=== PATIENT | male | born 1990 | race Caucasian/White ===

== ENCOUNTER → 2020-02-29 16:44 | Outpatient (CLI) | payer BC, SELFPAY | PROVIDERS: PCP Family Medicine; Visit Provider Family Medicine | DX: Z03.818 Encounter for observation for suspected exposure to other biological agents ruled out (principal); R05 Cough | CPT/HCPCS: U0003 ==

== ENCOUNTER 2020-10-20 14:27 | Emergency (ER) | payer BC, SELFPAY ==
--- NOTE | 2020-10-20 14:26 | ECG_ITS ---
APPROVED REPORT Exam: Resting ECG HR:91 bpm ECG Measurements Heart Rate 91 AXES AR 146 P 59 QRSd 82 QRS 42 QT 340 T 36 QTc 418 Conclusion Normal sinus rhythm Normal ECG Electronically signed by : Abel Ceja MD 10/22/2020 21:06:43
[2020-10-20 14:28] VITALS: BP 135/82; PULSE 84; RESP 22; TEMP 36.9; O2SAT 96; BMI 35.6
--- NOTE | 2020-10-20 14:32 | HMH.EDCP ---
ED Disposition Clinical Impression: Atypical chest pain Disposition: Home, Self-Care Condition on Discharge: Fair Instructions: DI for Atypical Chest Pain Additional Instructions: Return to the emergency department if you feel worse in any way. Follow-up with your primary care doctor in about 3 to 5 days even if you feel better. Referrals: Provider,Fran, [Primary Care Provider] - 7-14 days - Critical Care Critical Care Time: No Attestation: On , the high probability of a clinically significant, sudden or life threatening deterioration of the following system(s) required my full and direct attention, intervention and personal management. The time I documented below is in addition to time spent performing reported procedures but includes the following listed in this critical care notation. Medical Decision Making - Medical Records Medical records reviewed: Yes: I reviewed the patient's medical records. - Kamran Inquiry Pt receiving controlled substance: No Vital Signs: 10/20/20 14:28 Temperature 98.5 F Temperature Source Oral Pulse Rate [Left Radial] 84 Respiratory Rate 22 Blood Pressure [Right Arm] 135/82 Blood Pressure Mean [Right Arm] 99 Blood Pressure Source [Right Arm] Automatic Cuff Blood Pressure Position [Right Arm] Sitting 02 Sat by Pulse Oximetry 96 Oxygen Delivery Method Room Air - Lab Data Lab results reviewed: Yes: I reviewed the patient's lab results. Lab Results 10/20/20 14:30: WBC 9.8, RBC 5.35, Hgb 15.4, Hct 46.8, MCV 87.6, MCH 28.8, MCHC 32.8, RDW 12.9, Plt Count 323, MPV 7.5, Neut % (Auto) 66.4, Lymph % (Auto) 23.0, Mineral % (Auto) 4.4, Eos % (Auto) 5.5, Baso % (Auto) 0.7, Neut # (Auto) 6.5, Lymph # (Auto) 2.3, Mineral # (Auto) 0.4, Eos # (Auto) 0.5 H, Baso # (Auto) 0.1 10/20/20 14:30: Sodium 142, Potassium 4.1, Chloride 106, Carbon Dioxide 28, Anion Gap 12.1, BUN 11, Creatinine 0.80, Estimated Creat Clear 217, Estimated GFR 114, Est GFR ( Amer) 138, Glucose 102 H, Calcium 9.2, Total Bilirubin 1.0, AST 28, ALT 37, Alkaline Phosphatase 83, Troponin I < 0.01, Total Protein 8.0, Albumin 4.6, Globulin 3.4 H, Albumin/Globulin Ratio 1.4 Result diagrams: 10/20/20 14:30 10/20/20 14:30 Orders (Tests/Meds): ED MEDICATIONS Discontinued Medications Generic Name Dose Route Start Last Admin Trade Name Aundrea PRN Reason Stop Dose Admin Aspirin 324 mg 10/20/20 14:35 10/20/20 14:43 Aspirin 81mg Chewable Tablet PO 10/20/20 14:36 324 mg ONCE ONE Administration ORDERS Category Date Time Status Troponin I Q3H Lab 10/20/20 17:45 Ordered Troponin I Q3H Lab 10/20/20 20:45 Ordered - Radiology Data #1 Image(s): Chest Image Reviewed: Yes I reviewed the patient's radiology results, Yes I have reviewed radiologist's interpretation Preliminary Findings: Normal/NAD - ECG Data Tracing #1 I reviewed this ECG and interpreted as documented below: The ECG was performed at 1426. It shows a normal sinus rhythm with a heart rate of 91 bpm. There is no evidence of ischemia. The axes are normal. There is no dysrhythmia. Normal Sinus Rhythm: Yes - LINDA Score for Non-Stemi Age of Patient: <30 years old Heart Rate: 70-89 bpm Systolic Blood Pressure: 120-139 mmhg Serum Creatinine: 0.80-1.19 mg/dl CHF Killip Class: I-No CHF Other Risk Factors: None Non-Stemi Risk Score: 50 Medical Decision Narrative: The patient presented to the emergency department complaining of intermittent chest pain that lasts about 10 seconds at a time since yesterday. The patient's work-up in the emergency department did not reveal any evidence of life-threatening or dangerous causes for the patient's chest pain. His troponin is undetectable. His vital signs are unremarkable. Chest x-ray is also normal. I feel that the patient can be discharged in stable condition with instructions to follow-up with a primary care doctor. Chest Pain HPI - General Chief Complaint: Chest Pain
--- NOTE | 2020-10-20 14:35 | XR_ITS ---
PROCEDURE INFORMATION: Exam: XR Chest Exam date and time: 10/20/2020 2:35 PM Age: 29 years old Clinical indication: Sternal or substernal pain; Patient HX: Chest pain for 2 days. ; Additional info: , Cp TECHNIQUE: Imaging protocol: XR of the chest. Views: 1 view. COMPARISON: No relevant prior studies available. FINDINGS: Lungs: Unremarkable. No consolidation. Pleural spaces: Unremarkable. No pleural effusion. No pneumothorax. Heart/Mediastinum: Unremarkable. No cardiomegaly. Bones/joints: Unremarkable. IMPRESSION: No acute findings.
[2020-10-20 14:46] LABS: Chloride 106 mmol/L (98-107)
[2020-10-20 14:47] LABS: Potassium 4.1 mmoL/L (3.5-5.1); Sodium 142 mmol/L (136-145)
[2020-10-20 14:48] LABS: Basophils # 0.1 K/mm3 (0-0.2); Basophils % 0.7 % (0.1-2.0); Eosinophils # 0.5 K/mm3 (0.0-0.4); Eosinophils % 5.5 % (0.1-12.0); Hematocrit 46.8 % (42.0-52.0); Hemoglobin 15.4 g/dL (14.1-18.0); Lymphocytes # 2.3 K/mm3 (0.7-4.5); Mean Corpuscular HGB Conc 32.8 g/dL (31.8-35.4); Mean Corpuscular Hemoglobin 28.8 pg (27.0-31.2); Mean Corpuscular Volume 87.6 fl (80-94); Mean Platelet Volume 7.5 fl (7.4-10.4); Monocytes # 0.4 K/mm3 (0.1-1.0); Monocytes % 4.4 % (1.7-9.3); Neutrophils # 6.5 K/mm3 (1.8-7.8); Neutrophils % 66.4 % (37.0-80.0); Platelet Count 323 K/mm3 (142-424); Red Blood Count 5.35 M/mm3 (4.60-6.20); Red Cell Distribution Width 12.9 % (11.5-17.5); White Blood Count 9.8 K/mm3 (4.8-10.8)
[2020-10-20 14:49] LABS: Alanine Aminotransferase 37 U/L (12-78); Albumin Level 4.6 g/dl (3.5-5.0); Alkaline Phosphatase 83 U/L (38-126); Aspartate Amino Transferase 28 U/L (17-59); Blood Urea Nitrogen 11 mg/dl (9-20); Creatinine Clearance Estimated 217 mL/min (50-200); Estimated Glomerular Filt Rate 114 ml/min (>60); GFR (African American) 138 ML/MIN (>60)
[2020-10-20 14:50] LABS: Albumin/Globulin Ratio 1.4 (1.1-1.8); Anion Gap 12.1 mEq/L (5-15); Calcium 9.2 mg/dl (8.4-10.2); Carbon Dioxide 28 mmol/L (22.0-30.0); Globulin 3.4 g/dL (1.3-3.2); Glucose 102 mg/dl (74-100)
[2020-10-20 15:03] LABS: Troponin I < 0.01 ng/ml (0.00-0.034)
[2020-10-20 15:25] VITALS: BP 133/69; PULSE 78; RESP 16; TEMP 36.6; O2SAT 98
== END 2020-10-20 15:26 | disposition home or self-care (01) ==
PROVIDERS: Emergency Provider Emergency Medicine
DX: R07.89 Other chest pain (principal)
CPT/HCPCS: 71045; 80053; 84484; 85025; 93005; 99282

== ENCOUNTER 2020-12-03 07:57 | Emergency (ER) | payer BC, SELFPAY ==
[2020-12-03 07:57] VITALS: BP 156/94; PULSE 76; RESP 20; TEMP 36.9; O2SAT 98; BMI 35.9
--- NOTE | 2020-12-03 08:20 | PC.NURSE ---
PT DOES NOT WANT ANY PAIN MEDS AT THIS TIME
--- NOTE | 2020-12-03 08:25 | CT_ITS ---
PROCEDURE: CT ABDOMEN PELVIS WO CON CLINICAL INDICATION: lt flank pain, blood in urine COMPARISON: No exams were available for comparison TECHNIQUE: Axial images obtained with sagittal and coronal reformats. All CT scans at the facility use one or more dose reduction, viz: automated exposure control, ma/kV adjustment per patient size (including targeted exams where dose is matched to indication, i.e. head), or iterative reconstruction technique. FINDINGS: LOWER THORAX: No acute finding ABDOMEN & PELVIS: The liver, spleen, adrenal glands, and pancreas have an unremarkable appearance. There is a 5 x 3 mm stone in the proximal left ureter at the ureteropelvic junction causing mild left-sided hydronephrosis. There is scattered small mesenteric lymph nodes. No intestinal obstruction or free air is evident. No evidence of appendicitis. Scattered small nodes are present in the inguinal regions. No acute bony findings. IMPRESSION: 5 x 3 mm stone in the proximal left ureter at the ureteropelvic junction with mild left-sided hydronephrosis Dictated by: Martinez Sauceda MD 12/03/2020 08:59 Martinez Sauceda MD in [place] 12/03/2020 08:59
[2020-12-03 08:30] LABS: Microscopic, Urine URINE MICROSCOPIC (MICROSCOPIC)
[2020-12-03 08:36] LABS: Appearance,Urine CLEAR (Clear); Bilirubin,Urine Negative (Negative); Blood, Urine 3+ (Negative); Color,Urine YELLOW (Yellow); Glucose,Urine (UA) Negative (Negative); Ketones,Urine Negative (Negative); Leukocyte Esterase,Urine TRACE (Negative); Nitrate,Urine Negative (Negative); Protein,Urine TRACE (Negative); Specific Gravity, Urine 1.025 (1.005-1.030); Urobilinogen,Urine 0.2 EU/dl (0.2)
[2020-12-03 08:37] LABS: Basophils # 0.1 K/mm3 (0-0.2); Basophils % 0.8 % (0.1-2.0); Eosinophils # 0.7 K/mm3 (0.0-0.4); Hematocrit 45.9 % (42.0-52.0); Hemoglobin 14.8 g/dL (14.1-18.0); Lymphocytes % 27.1 % (10-50); Mean Corpuscular HGB Conc 32.2 g/dL (31.8-35.4); Mean Corpuscular Hemoglobin 29.7 pg (27.0-31.2); Mean Corpuscular Volume 92.3 fl (80-94); Mean Platelet Volume 8.4 fl (7.4-10.4); Monocytes # 0.5 K/mm3 (0.1-1.0); Monocytes % 4.3 % (1.7-9.3); Neutrophils # 6.9 K/mm3 (1.8-7.8); Neutrophils % 61.7 % (37.0-80.0); Platelet Count 338 K/mm3 (142-424); Red Blood Count 4.98 M/mm3 (4.60-6.20); White Blood Count 11.1 K/mm3 (4.8-10.8)
[2020-12-03 08:38] LABS: Alanine Aminotransferase 53 U/L (12-78); Albumin Level 4.4 g/dl (3.5-5.0); Albumin/Globulin Ratio 1.2 (1.1-1.8); Alkaline Phosphatase 86 U/L (38-126); Aspartate Amino Transferase 31 U/L (17-59); Bilirubin,Total 0.5 mg/dl (0.2-1.3); Blood Urea Nitrogen 9 mg/dl (9-20); Calcium 9.3 mg/dl (8.4-10.2); Carbon Dioxide 31 mmol/L (22.0-30.0); Chloride 102 mmol/L (98-107); Creatinine Clearance Estimated 217 mL/min (50-200); Estimated Glomerular Filt Rate 114 ml/min (>60); GFR (African American) 137 ML/MIN (>60); Globulin 3.6 g/dL (1.3-3.2); Glucose 115 mg/dl (74-100); Sodium 143 mmol/L (136-145)
[2020-12-03 08:43] LABS: RBC,Urine 20-50 #/hpf (0-3); Squamous Epithelial Cell,Urine Occasional #/hpf (0-5)
--- NOTE | 2020-12-03 08:57 | HMH.EDGENADL ---
ED Disposition Clinical Impression: Ureteral stone Disposition: Home, Self-Care Condition on Discharge: Good Additional Instructions: Medications as directed. Follow-up with urology. Prescriptions: Ketorolac Tromethamine [Toradol 10mg tablet] 10 mg PO Q6HP PRN #16 tab MDD 40mg/day PRN Reason: Mild Pain Transmission Status: Pending to [facility] Tamsulosin HCl [Flomax 0.4mg capsule] 0.4 mg PO HS #15 cap Transmission Status: Pending to [facility] Hydrocodone/Acetaminophen [Hydrocodone-Acetamin 5-325 mg] 1 tab PO TID PRN #8 tab PRN Reason: Moderate Pain Transmission Status: Sent to [facility] Ondansetron [Zofran 4mg ODT] 4 mg PO TIDP PRN #10 tab PRN Reason: Nausea Transmission Status: Pending to [facility] Referrals: Octavio Rico MD [Primary Care Provider] - Prem Cazares MD [Staff Physician] - (call today) Time of Disposition: 09:00 - Critical Care Critical Care Time: No Attestation: On 12/03/20, the high probability of a clinically significant, sudden or life threatening deterioration of the following system(s) required my full and direct attention, intervention and personal management. The time I documented below is in addition to time spent performing reported procedures but includes the following listed in this critical care notation. Medical Decision Making - Medical Records Medical records reviewed: Yes: I reviewed the patient's medical records. - Kamran Inquiry Pt receiving controlled substance: Yes Kamran was queried for this patient: No Reason not queried -: Emergent pt cond-no time Risks and benefits of using a controlled substance: were discussed with pt by me Vital Signs: 12/03/20 07:57 Temperature 98.4 F Temperature Source Oral Pulse Rate [Right Radial] 76 Respiratory Rate 20 Blood Pressure [Right Arm] 156/94 H Blood Pressure Mean [Right Arm] 114 Blood Pressure Source [Right Arm] Automatic Cuff Blood Pressure Position [Right Arm] Sitting 02 Sat by Pulse Oximetry 98 Oxygen Delivery Method Room Air - Lab Data Lab results reviewed: Yes: I reviewed the patient's lab results. Lab Results 12/03/20 08:05: Urine Color Yellow, Urine Appearance Clear, Urine pH 6.0, Ur Specific Melvin 1.025, Urine Protein Trace, Urine Glucose (UA) Negative, Urine Ketones Negative, Urine Blood 3+, Urine Nitrate Negative, Urine Bilirubin Negative, Urine Urobilinogen 0.2, Ur Leukocyte Esterase Trace, Urine RBC 20-50, Urine WBC 3-5, Ur Squamous Epith Cells Occasional, Urine Bacteria None 12/03/20 08:10: WBC 11.1 H, RBC 4.98, Hgb 14.8, Hct 45.9, MCV 92.3, MCH 29.7, MCHC 32.2, RDW 13.0, Plt Count 338, MPV 8.4, Neut % (Auto) 61.7, Lymph % (Auto) 27.1, Brule % (Auto) 4.3, Eos % (Auto) 6.0, Baso % (Auto) 0.8, Neut # (Auto) 6.9, Lymph # (Auto) 3.0, Brule # (Auto) 0.5, Eos # (Auto) 0.7 H, Baso # (Auto) 0.1 12/03/20 08:10: Sodium 143, Potassium 4.0, Chloride 102, Carbon Dioxide 31 H, Anion Gap 14.0, BUN 9, Creatinine 0.80, Estimated Creat Clear 217, Estimated GFR 114, Est GFR ( Amer) 137, Glucose 115 H, Calcium 9.3, Total Bilirubin 0.5, AST 31, ALT 53, Alkaline Phosphatase 86, Total Protein 8.0, Albumin 4.4, Globulin 3.6 H, Albumin/Globulin Ratio 1.2 Result diagrams: 12/03/20 08:10 12/03/20 08:10 Orders (Tests/Meds): ORDERS Category Date Time Status CT abdomen pelvis wo con Stat Cat Scan 12/03/20 08:25 Taken - CT Data CT Scan: Abdomen, Pelvis Time Received: 08:[address] Reviewed: Yes: I have reviewed the patient's CT results Preliminary Findings: Abnormal Findings Narrative: Left proximal ureteral stone Medical Decision Narrative: 30yo M presents the emergency department left leg pain. Patient's HPI and physical exam is concerning for kidney stone. Patient has undergone laboratory studies and had his CT completed. Laboratory studies are unremarkable except for some blood in the patient's urine. Patient has a proximal ureter left k
[2020-12-03 09:38] VITALS: BP 134/89; PULSE 79; RESP 18; TEMP 36.8; O2SAT 98
== END 2020-12-03 09:39 | disposition home or self-care (01) ==
PROVIDERS: Emergency Provider Family Medicine; PCP Family Medicine
DX: N20.1 Calculus of ureter (principal)
CPT/HCPCS: 74176; 80053; 81001; 85025; 99283

== ENCOUNTER → 2020-12-11 15:10 | Outpatient (CLI) | payer BC, SELFPAY ==
--- NOTE | 2020-12-11 15:16 | XR_ITS ---
PROCEDURE: XR KUB CLINICAL INDICATION: kidney stone COMPARISON: CT CT ABDOMEN PELVIS WO CON from 12/03/2020 FINDINGS: Nonspecific bowel gas pattern. No acute bony anomalies. A faint calcific density is present overlying the left pelvic region measuring approximately 3 mm and could represent a stone at the ureterovesical junction or within the bladder or could also be due to phleboliths. However, no phleboliths are present in this region on the CT scan. IMPRESSION: Possible 3 mm left ureterovesical stone or stone within the urinary bladder Dictated by: Martinez Sauceda MD 12/11/2020 17:19 Martinez Sauceda MD in [place] 12/11/2020 17:19
== END ==
PROVIDERS: PCP Family Medicine; Visit Provider Urology
DX: N20.0 Calculus of kidney (principal)
CPT/HCPCS: 74018

== ENCOUNTER 2022-02-25 22:17 | Emergency (ER) | payer BC, SELFPAY ==
[2022-02-25 22:19] VITALS: BP 132/69; PULSE 94; RESP 16; TEMP 36.7; O2SAT 96; BMI 35.4
--- NOTE | 2022-02-25 22:41 | HMH.EDEAR ---
Discharge Plan Disposition Patient Disposition: Home, Self-Care Prescriptions Prescriptions: New cefdinir [cefdinir] 300 mg capsule 300 mg PO BID Qty: 14 0RF No Action cephalexin 500 mg capsule 500 mg PO TID hydrocodone-acetaminophen 1 EACH tablet 1 tab PO TID PRN (Reason: Moderate Pain) Qty: 8 0RF ketorolac 10 MG tablet 10 mg PO Q6HP MDD 40mg/day PRN (Reason: Mild Pain) Qty: 16 0RF Rx Instructions: Therapy initiated with IV/IM dose tamsulosin 0.4 MG capsule 0.4 mg PO HS Qty: 15 0RF ondansetron 4 MG tablet,disintegrating 4 mg PO TIDP PRN (Reason: Nausea) Qty: 10 0RF Referrals Follow up/Referrals: Octavio Rico MD [Primary Care Provider] - See instructions Clinical Impressions Clinical Impression: Otitis media Instructions Patient Instructions: DI for Ear Pain-Child Discharge ED Provider: Gaetano Serrano Ear HPI General Chief complaint: Ear Stated complaint: R ear pain leaking Time Seen by Provider: 02/25/22 22:41 Mode of Arrival: Ambulatory Source of Information: Patient and Medical Record Limitations: No Limitations Description of Symptoms (Recalled from ER Triage Doc. by RN): pt states woke up arounf 7 tonight with rt ear pain. pt c/o throbbing, fullness and liquid draining out of ear. History of Present Illness HPI Narrative: progressive rt ear pain with drainage w/o trauma started tonight Complaint: ear pain and ear discharge Location: right ear Duration: intermittent Severity: moderate Discharge from ear: yes - clear Treatment prior to arrival: none Related Data Home Medications Medication Instructions Recorded Confirmed cephalexin 500 mg capsule 500 mg PO TID 06/13/17 12/23/20 Previous Rx's Medication Instructions Recorded hydrocodone 5 mg-acetaminophen 325 1 tab PO TID PRN Moderate Pain #8 12/03/20 mg tablet tabs ketorolac 10 mg tablet 10 mg PO Q6HP PRN Mild Pain #16 12/03/20 tabs ondansetron 4 mg disintegrating 4 mg PO TIDP PRN Nausea #10 tabs 12/03/20 tablet tamsulosin 0.4 mg capsule 0.4 mg PO HS #15 caps 12/03/20 cefdinir 300 mg capsule 300 mg PO BID #14 caps 02/25/22 Allergies Allergy/AdvReac Type Severity Reaction Status Date / Time No Known Allergies Allergy Verified 12/23/20 15:13 PFSH [facility] Disclaimer: The information contained in this section may have been updated after the patient was seen, as this information can be updated by other users. Social History Smoking Status: Never smoker alcohol intake: never substance use type: denies use current occupational status: employed Travel in the last 8 weeks: None household members: spouse and children housing: house ROS Obtained: Yes All systems reviewed & no additional complaints except as documented Physical Exam General General appearance: alert Head Head exam: normocephalic Eye Eye exam: Present PERRL and EOMI ENT ENT exam: Present mucous membranes moist Expanded ENT Exam TM/Canal exam: Right TM: erythema Neck Neck exam: Present trachea midline Respiratory Respiratory exam: Absent respiratory distress Cardiovascular Cardiovascular exam: Present regular rate Abdominal Exam Abdominal exam: Present soft Extremities Exam Extremities exam: Present full ROM Neurological Exam Neurological exam: Present alert, oriented X3 and CN II-XII intact Psychiatric Psychiatric exam: Present normal affect Skin Skin exam: Absent rash Medical Decision Making Medical Records Medical records reviewed: Yes I reviewed the patient's medical records. Kamran Inquiry Pt receiving controlled substance: No Vital Signs: 02/25/22 22:19 Temperature 98.1 F Temperature Source Oral Pulse Rate [Right] 94 H Respiratory Rate 16 Blood Pressure [Right Arm] 132/69 Blood Pressure Mean [Right Arm] 90 02 Sat by Pulse Oximetry 96 Lab Data Lab results reviewed: Yes I reviewed the patient's lab results. Medical Decision Narrative: pt has rt otitis med
[2022-02-25 23:13] VITALS: BP 129/87; PULSE 90; RESP 16; TEMP 36.7; O2SAT 96
== END 2022-02-25 23:15 | disposition home or self-care (01) ==
PROVIDERS: Emergency Provider Emergency Medicine; PCP Family Medicine
DX: H66.91 Otitis media, unspecified, right ear (principal); R11.0 Nausea; Z79.899 Other long term (current) drug therapy
CPT/HCPCS: 99283

== ENCOUNTER → 2022-11-18 10:58 | Outpatient (CLI) | payer BC, SELFPAY ==
--- NOTE | 2022-11-18 | CA_ITS ---
APPROVED REPORT Exam: Exercise Treadmill Technologist: Pretty Vega Ht: 5 ft 9 in Wt: 245 lbs BSA: 2.25 m2 HR: 76 bpm BP: 128/75 mmHg Rhythm: NSR Medical History Medications: ANxiety,,,,, Stress Test Details Test: Rafat HR Resting HR: 85 bpm Max Heart Rate (APMHR): 189 bpm Max HR Achieved: 185 bpm Target HR (85% APMHR): 161 bpm % of APMHR: 98 Recovery HR: 105 bpm HR response to stress: Normal HR response to stress BP Resting BP: 128.0/75.0 mmHg Max BP: 188.0/74.0 mmHg Recovery BP: 131.0/78.0 mmHg BP response to stress: Normal blood pressure response to stress. ECG Resting ECG: Normal sinus rhythm, early repolarization changes. Stress ECG: No significant ST changes Arrhythmia: None Recovery ECG: No significant ST changes Recovery Arrhythmia: None Clinical Exercise duration: 10:24 min Highest Stage Achieved: Exercise capacity: 12.8 METs Overall Exercise Capacity for Age: Average Stress ECG Conclusion The patient was able to exercise for a total of 10 minutes, 24 seconds. He achieved a total of 12.8 METS. He has an average exercise capacity compared to age and sex matched peers. Test stopped due to shortness of air. He has normal HR and BP response to exercise. Symptoms: No chest pain. Arrhythmias/Ectopy: None ST-T Changes: Normal ST response to exercise. Conclusion: Normal GXT. GXT only (no imaging). Test Summary REST . . . . . . . Standing REST . . . . . . . Sitting REST 03:14 0.0 0.0 85 . 128/ 75 . . Stage 1 01:00 10.0 1.7 104 . . . . Stage 1 02:00 10.0 1.7 111 . . . . Stage 1 03:00 10.0 1.7 110 . 146/ 78 . . Stage 2 01:00 12.0 2.5 118 . . . . Stage 2 02:00 12.0 2.5 125 . . . . Stage 2 03:00 12.0 2.5 135 . 166/ 78 . . Stage 3 01:00 14.0 3.4 145 . . . . Stage 3 02:00 14.0 3.4 155 . . . . Stage 3 03:00 14.0 3.4 163 . 188/ 74 . . Stage 4 01:00 16.0 4.2 181 . . . . Stage 4 01:24 16.0 4.2 184 . . . Stop exercise at 10:24 RECOVERY 01:00 0.0 0.0 164 . . . . RECOVERY 02:00 0.0 0.0 129 . 157/ 76 . . RECOVERY 03:00 0.0 0.0 115 . 157/ 76 . . RECOVERY 04:00 0.0 0.0 106 . 158/ 81 . . RECOVERY 05:00 0.0 0.0 107 . 131/ 78 . . RECOVERY 05:20 0.0 0.0 103 . 131/ 78 . . Electronically signed by : Camille Matthew MD 12/13/2022 00:01:54
== END ==
LOC: RAD 10:59
PROVIDERS: PCP Family Medicine; Visit Provider Family Medicine
DX: R07.89 Other chest pain (principal)
CPT/HCPCS: 93017

== ENCOUNTER 2023-04-15 14:01 | Emergency (ER) | payer BC, SELFPAY ==
--- NOTE | 2023-04-15 14:58 | EXP.UTC ---
Discharge Plan Disposition Patient Disposition: Home, Self-Care Condition: Good Prescriptions Prescriptions: New methylprednisolone 4 mg Tablets,Dose Pack 4 mg PO DIRECTED 6 Days Qty: 21 0RF Rx Instructions: Take 1 pack as directed for 6 days No Action hydrocodone-acetaminophen 1 EACH tablet 1 tab PO TID PRN (Reason: Moderate Pain) Qty: 8 0RF ketorolac 10 MG tablet 10 mg PO Q6HP MDD 40mg/day PRN (Reason: Mild Pain) Qty: 16 0RF Rx Instructions: Therapy initiated with IV/IM dose tamsulosin 0.4 MG capsule 0.4 mg PO HS Qty: 15 0RF ondansetron 4 MG tablet,disintegrating 4 mg PO TIDP PRN (Reason: Nausea) Qty: 10 0RF Referrals Follow up/Referrals: Octavio Rico MD [Primary Care Provider] - See instructions Activity Restrictions/Add. Instructions Additional Instructions/Restrictions: Go home and rest. It would be best if you rested tomorrow too. No heavy lifting. No twisting for the next few days. Take the oral medications as directed. Follow up with your regular doctor. GO TO THE ER FOR ANY WORSENING SYMPTOMS OR CONCERN, ESPECIALLY BOWEL OR BLADDER ISSUES, SADDLE AREA NUMBNESS, FEVER, ETC Clinical Impressions Clinical Impression: Pain in right leg, Right sided sciatica Stand Alone Forms Stand Alone Forms: Work/School Release Instructions Patient Instructions: DI for Sciatica, DI for Leg Pain, Methylprednisolone Discharge ED Provider: Ace Reddy [facility] General Stated complaint: pain in R buttox area Time Seen by Provider: 04/15/23 14:58 History of Present Illness Provider Complaint: He states that for the past 2 days he has had pain in the area of the top of his right buttock that radiates down his right leg. He denies any injury or fall. He denies any bowel or bladder symptoms. He denies any saddle area numbness. Related Data Previous Rx's Medication Instructions Recorded hydrocodone 5 mg-acetaminophen 325 1 tab PO TID PRN Moderate Pain #8 12/03/ mg tablet tabs ketorolac 10 mg tablet 10 mg PO Q6HP PRN Mild Pain #16 12/03/20 tabs ondansetron 4 mg disintegrating 4 mg PO TIDP PRN Nausea #10 tabs 12/03/20 tablet tamsulosin 0.4 mg capsule 0.4 mg PO HS #15 caps 12/03/20 methylprednisolone 4 mg tablets in 4 mg PO DIRECTED 6 days #21 tabs 04/15/23 a dose pack Allergies Allergy/AdvReac Type Severity Reaction Status Date / Time No Known Allergies Allergy Verified 04/15/23 15:18 [facility] Disclaimer: The information contained in this section may have been updated after the patient was seen, as this information can be updated by other users. Social History Smoking Status: Never smoker alcohol intake: never substance use type: denies use current occupational status: employed Travel in the last 8 weeks: None household members: spouse and children housing: house ROS Obtained: Yes All systems reviewed & no additional complaints except as documented Constitutional Constitutional: Denies chills and Denies fever(s) Eyes Eyes: Denies eye discharge ENT Ears, Nose, Mouth, and Throat: Denies disequilibrium, Denies dizziness, Denies otalgia and Denies sore throat Cardiovascular Cardiovascular: Denies chest pain Respiratory Respiratory: Denies shortness of breath, Denies chest congestion, Denies cough, Denies stridor and Denies wheezing Gastrointestinal Gastrointestingal: Denies nausea or vomiting Musculoskeletal Musculoskeletal: Reports as per HPI, Denies abnormal gait, Reports back pain and Denies numbness Integumentary/Breasts Skin/Breast: Denies rash Neurologic Neurologic: Denies abnormal gait, Denies burning sensations, Denies disequilibrium, Denies dizziness, Denies numbness, Denies paresthesias and Reports radicular pain Allergic/Immunologic Allergic/Immunologic: Denies wheezing Physical Exam General General appearance: alert and in no apparent distress Head Head exam: atraumatic, normocephalic and normal inspection Eye Eye exam: Present normal appearance, PERRL and EOMI ENT ENT exam: Present normal exam, normal oropharynx, mucous membranes moist, TM's normal bilaterally and normal external ear exam Neck Neck exam: Present normal inspection, full ROM and trachea midline; Absent meningismus or lymphadenopathy Chest Chest inspection: Present normal inspection and symmetric chest wall rise; Absent tenderness Respiratory Respiratory exam: Present normal lung sounds bilaterally; Absent respiratory distress Cardiovascular Cardiovascular exam: Present regular rate and normal rhythm; Absent JVD Abdominal Exam Abdominal exam: Present soft and normal bowel sounds; Absent distention, tenderness or guarding Extremities Exam Extremities exam: Present normal inspection, full ROM and normal capillary refill; Absent calf tenderness Back Exam Back exam: Present normal inspection; Absent tenderness Neurological Exam Neurological exam: Present alert, oriented X3, CN II-XII intact, normal gait and reflexes normal; Absent motor sensory deficit Expanded Neurological Exam Speech: Present fluid speech Cranial nerves: Normal: EOM function (II, III, IV, ), facial sensation (V), facial palsy (VII), gag reflex (IX), spinal accessory function (XI) and tongue deviation (XII) Cerebellar function: normal gait Motor strength - LUE: 5/5 Motor strength - RUE: 5/5 Motor strength - LLE: 5/5 Motor strength - RLE: 5/5 Sensory exam upper extremity: Normal: light touch and 2 point discrimination Sensory exam lower extremity: Normal: light touch and 2 point discrimination DTR: 2+: biceps (L), biceps (R), patellar (L), patellar (R), Achilles tendon (L) and Achilles tendon (R) Spinal cord function: Absent saddle anesthesia Psychiatric Psychiatric exam: Present normal affect and normal mood Skin Skin exam: Present warm, dry, intact and normal color Lymphatic Lymphatic Findings: no adenopathy Medical Decision Making Medical Records Medical records reviewed: No I reviewed the patient's medical records. Kamran Inquiry Pt receiving controlled substance: No
[2023-04-15 15:00] VITALS: BP 114/84; PULSE 105; RESP 18; TEMP 36.9; O2SAT 100; BMI 36.8
[2023-04-15 15:42] VITALS: BP 114/84; PULSE 105; RESP 18; TEMP 36.9; O2SAT 100
== END 2023-04-15 15:42 | disposition home or self-care (01) ==
PROVIDERS: Emergency Provider Nurse Practitioner Family; PCP Family Medicine
DX: M79.604 Pain in right leg (principal); M54.31 Sciatica, right side
CPT/HCPCS: 99204; 99212; G0463

== ENCOUNTER 2023-06-03 21:02 | Emergency (ER) | payer BC, SELFPAY ==
--- NOTE | 2023-06-03 21:00 | ECG_ITS ---
APPROVED REPORT Exam: Resting ECG HR:85 bpm ECG Measurements Heart Rate 85 AXES TX 136 P 43 QRSd 84 QRS 43 QT 339 T 29 QTc 381 Conclusion SINUS RHYTHM NORMAL ECG Electronically signed by : HIREN MENDOZA, 06/07/2023 15:58:27
[2023-06-03 21:05] VITALS: BP 150/79; PULSE 82; RESP 16; TEMP 36.5; O2SAT 99; BMI 39.9
--- NOTE | 2023-06-03 21:10 | XR_ITS ---
FINAL REPORT TECHNIQUE: PA and lateral views of the chest were obtained. CLINICAL HISTORY: chest pain COMPARISON: 10/20/2020 FINDINGS: There is mild bronchial wall thickening. There is no consolidation. There is no pneumothorax or pleural effusion. Normal heart size. IMPRESSION: Possible bronchitis. Reviewed, Interpreted and Dictated by Petros De Leon MD Transcribed by Silvia Colon Authenticated and [facility]
[2023-06-03 21:17] LABS: Basophils # 0.1 K/mm3 (0-0.2); Eosinophils # 0.5 K/mm3 (0.0-0.4); Eosinophils % 5.2 % (0.1-12.0); Hematocrit 47.3 % (42.0-52.0); Hemoglobin 15.2 g/dL (14.1-18.0); Lymphocytes # 2.2 K/mm3 (0.7-4.5); Lymphocytes % 21.4 % (10-50); Mean Corpuscular HGB Conc 32.1 g/dL (31.8-35.4); Mean Corpuscular Hemoglobin 29.8 pg (27.0-31.2); Mean Platelet Volume 8.2 fl (7.4-10.4); Monocytes # 0.5 K/mm3 (0.1-1.0); Monocytes % 5.3 % (1.7-9.3); Neutrophils # 6.8 K/mm3 (1.8-7.8); Neutrophils % 67.2 % (37.0-80.0); Platelet Count 302 K/mm3 (142-424); Red Blood Count 5.08 M/mm3 (4.60-6.20); Red Cell Distribution Width 13.4 % (11.5-17.5)
--- NOTE | 2023-06-03 21:24 | [facility].EDCP ---
Discharge Plan Disposition Patient Disposition: Home, Self-Care Condition: Good Prescriptions Prescriptions: No Action hydrocodone-acetaminophen 1 EACH tablet 1 tab PO TID PRN (Reason: Moderate Pain) Qty: 8 0RF ketorolac 10 MG tablet 10 mg PO Q6HP MDD 40mg/day PRN (Reason: Mild Pain) Qty: 16 0RF Rx Instructions: Therapy initiated with IV/IM dose tamsulosin 0.4 MG capsule 0.4 mg PO HS Qty: 15 0RF ondansetron 4 MG tablet,disintegrating 4 mg PO TIDP PRN (Reason: Nausea) Qty: 10 0RF methylprednisolone 4 mg Tablets,Dose Pack 4 mg PO DIRECTED 6 Days Qty: 21 0RF Rx Instructions: Take 1 pack as directed for 6 days Referrals Follow up/Referrals: Nba Bowden MD [Staff Physician] - See instructions Provider,MD Fran [Primary Care Provider] - See instructions Activity Restrictions/Add. Instructions Additional Instructions/Restrictions: You were evaluated in the emergency department today. At this time, your workup is reassuring. Please follow-up closely with your primary care provider. We also recommend close follow-up with cardiology, for which I have provided you information about. Return to the emergency department for new or worsening symptoms. Clinical Impressions Clinical Impression: Atypical chest pain, Lightheadedness Instructions Patient Instructions: DI for Atypical Chest Pain Discharge ED Provider: Kayy Harrell HPI General Chief Complaint: Chest Pain Stated Complaint: chest pain Time Seen by Provider: 06/03/23 21:07 Mode of Arrival: Family Vehicle Source of Information: Patient Limitations: No Limitations Description of Symptoms (Recalled from ER Triage Doc. by RN): 32 yo male presents with CC of left anterior chest pain w/o radiation; denies soa, denies n/v. States it feels like pricking. Patient states he at first felt like it might be gerd but then h e got worried. History of Present Illness HPI narrative: This patient is a 32-year-old male who denies significant past medical history presenting to the emergency department with concern for chest pain and lightheadedness. Patient reports that for a long time now, he has been intermittently having lightheadedness and will occasionally get pinpricks in the left anterior part of his chest. He has noticed it more over the last few days, and today it started and he took his blood pressure and noted that it was high with systolic in the 160s. He states that he thought maybe it was acid reflux, but his made him come in for further evaluation and management. He notes that he was experiencing this before months ago and saw Dr. Rico for it. He notes that Dr. Rico had him do a stress test, which was reassuring. There was a normal response to exercise without acute concerns on medical record review. He notes that he was told he was probably dehydrated at that time, and Dr. Rico told him to drink more fluids. He denies any history of blood clots, clotting disorders, calf pain or swelling, recent surgeries, immobilization, or other concerns. He denies any known history of any medical problems and denies taking any medications at home. Related Data Previous Rx's Medication Instructions Recorded hydrocodone 5 mg-acetaminophen 325 1 tab PO TID PRN Moderate Pain #8 12/03/20 mg tablet tabs ketorolac 10 mg tablet 10 mg PO Q6HP PRN Mild Pain #16 12/03/20 tabs ondansetron 4 mg disintegrating 4 mg PO TIDP PRN Nausea #10 tabs 12/03/20 tablet tamsulosin 0.4 mg capsule 0.4 mg PO HS #15 caps 12/03/20 methylprednisolone 4 mg tablets in 4 mg PO DIRECTED 6 days #21 tabs 04/15/23 a dose pack Allergies Allergy/AdvReac Type Severity Reaction Status Date / Time No Known Allergies Allergy Verified 04/15/23 15:18 [facility] Disclaimer: The information contained in this section may have been updated after the patient was seen, as this information can be updated by other users. Social History Smoking Status: Unknown if ever smoked alcohol intake: never substance use type: denies use current occupational status: employed Travel in the last 8 weeks: None household members: spouse and children housing: house ROS Obtained: Yes All systems reviewed & no additional complaints except as documented Physical Exam General General appearance: alert, in no apparent distress and obese Head Head exam: atraumatic and normocephalic Eye Eye exam: Present normal appearance, PERRL and EOMI ENT ENT exam: Present normal exam, normal oropharynx, mucous membranes moist and normal external ear exam Neck Neck exam: Present normal inspection, full ROM and trachea midline; Absent tenderness Chest Chest inspection: Present normal inspection and symmetric chest wall rise; Absent tenderness Respiratory Respiratory exam: Present normal lung sounds bilaterally; Absent respiratory distress, wheezes, stridor or accessory muscle use Cardiovascular Cardiovascular exam: Present regular rate and normal rhythm Abdominal Exam Abdominal exam: Present soft; Absent distention, tenderness or guarding Extremities Exam Extremities exam: Present normal inspection, full ROM and normal capillary refill; Absent tenderness or edema Back Exam Back exam: Present normal inspection and full ROM; Absent tenderness Neurological Exam Neurological exam: Present alert, oriented X3, CN II-XII intact and normal gait; Absent motor sensory deficit Psychiatric Psychiatric exam: Present normal affect and normal mood Skin Skin exam: Present warm and dry HEART Score HEART Score HEART Score assessment performed?: Yes History (anamnesis): Slightly suspicious ECG: Normal Age: <45 years Risk factors: No known risk factors Troponin: </= normal limit HEART Score: 0 Critical Care Critical Care Time Critical Care Time: No Medical Decision Making Kamran Inquiry Pt receiving controlled substance: No Vital Signs Vital Signs: 06/03/23 21:05 06/03/23 21:31 06/03/23 22:08 Temperature 97.7 F 97.8 F Temperature Source Oral Oral Pulse Rate 72 75 Pulse Rate [Right Brachial] 82 Respiratory Rate 16 22 19 Blood Pressure 139/73 136/72 Blood Pressure [Right Radial Artery] 150/79 H Blood Pressure Mean 90 Blood Pressure Mean [Right Radial Artery] 102 Blood Pressure Source Automatic Cuff Blood Pressure Source [Right Radial Artery] Automatic Cuff Blood Pressure Position Sitting Blood Pressure Position [Right Radial Artery] Sitting 02 Sat by Pulse Oximetry 99 99 Oxygen Delivery Method Room Air Room Air Lab Data Labs: Lab Results 06/03/23 21:06: WBC 10.0, RBC 5.08, Hgb 15.2, Hct 47.3, MCV 93.0, MCH 29.8, MCHC 32.1, RDW 13.4, Plt Count 302, MPV 8.2, Neut % (Auto) 67.2, Lymph % (Auto) 21.4, [place] % (Auto) 5.3, Eos % (Auto) 5.2, Baso % (Auto) 1.0, Neut # (Auto) 6.8, Lymph # (Auto) 2.2, [place] # (Auto) 0.5, Eos # (Auto) 0.5 H, Baso # (Auto) 0.1, D-Dimer 0.31, Sodium 140, Potassium 3.8, Chloride 104, Carbon Dioxide 29, Anion Gap 10.8, BUN 14, Creatinine 0.90, Estimated Creat Clear 193, Estimated GFR 98, Est GFR ( Amer) 118, Glucose 94, Calcium 9.2, Total Bilirubin 1.2, AST 35, ALT 47, Alkaline Phosphatase 75, Troponin I < 0.01, Total Protein 8.0, Albumin 4.6, Globulin 3.4 H, Albumin/Globulin Ratio 1.4, Lipase 120 06/03/23 21:06 06/03/23 21:06 Response Orders (Tests/Meds): ED MEDICATIONS Discontinued Medications Generic Name Dose Route Start Last Admin Trade Name Freq PRN Reason Stop Dose Admin Belladonna Alkaloids 60 ml 06/03/23 21:10 06/03/23 21:25 Belladonna Alkaloids 60 Ml Ml PO 06/03/23 21:11 60 ml ONCE ONE Administration ORDERS Category Date Time Status XR chest 2V Stat Exams 06/03/23 21:10 Taken Complete Blood Count Auto Diff Stat Lab 06/03/23 21:06 Completed Comprehensive Metabolic Panel Stat Lab 06/03/23 21:06 Completed D-Dimer Stat Lab 06/03/23 21:06 Completed Lipase Stat Lab 06/03/23 21:06 Completed Troponin I Q3H Lab 06/04/23 00:15 Ordered Troponin I Q3H Lab 06/04/23 03:15 Ordered Troponin I Stat Lab 06/03/23 21:06 Completed ECG Data Tracing #1: Attestation: I reviewed this ECG and interpreted as documented below: ECG Narrative: Normal sinus rhythm with a ventricular rate of [address] changes concerning for ischemia. Normal axis and intervals. ECG initial impression date: 06/03/23 ECG initial impression time: 21:07 MDM Narrative Medical Decision Narrative: In summary, this patient is a 32-year-old male presenting to the Emergency Department for evaluation of intermittent lightheadedness and chest pain that has been going on for a while, but has been worse over the last few days. Differential diagnoses considered include but are not limited to ACS, dysrhythmia, electrolyte derangements, anxiety, GERD, esophageal spasms, pleurisy, PE. Ruling out the most morbid conditions drove assessment. On exam, the patient is well-appearing. He is resting comfortably in bed with reassuring cardiopulmonary exam and reassuring vital signs on cardiac telemetry. He has already had a negative stress test last November. Blood pressure here was initially slightly elevated, however on reassessment it is 139/73. Workup included CBC, CMP, troponin, D-dimer, chest x-ray, EKG. EKG is reassuring. Patient was given GI cocktail for symptomatic improvement given he feels it could be related to reflux. I independently interpreted x-ray prior to the radiologist read and noted no acute pneumothorax, focal consolidation, edema, or other concerns. Please see their read for final interpretation. Labs were obtained that demonstrated nonactionable CBC and metabolic panel. D-dimer is negative, so I do not feel that further workup for PE is indicated at this time. Troponin is negative, and given the duration of symptoms as well as the patient's low heart score, I do not feel that obtaining second troponin is indicated at this time. Ultimately, I have low suspicion that the patient's chest pain is cardiac in nature, however I cannot definitively say that it is not related to this. It could be that it is gastrointestinal versus anxiety versus musculoskeletal. He also experiences lightheadedness, but he is not orthostatic and vital signs here are reassuring. Patient reassuring workup and exam, I do not feel that he requires admission or further inpatient evaluation, but I do feel he would benefit from close follow-up. He was given information for follow-up with his primary care provider as well as with cardiology. Strict return precautions were given, and the patient was discharged in stable condition after all questions were answered.
[2023-06-03] MEDS: BELLADONNA ALKALOIDS 60 ML ML PO (21:25)
[2023-06-03 21:26] LABS: Chloride 104 mmol/L (98-107); Potassium 3.8 mmoL/L (3.5-5.1); Sodium 140 mmol/L (136-145)
[2023-06-03 21:28] LABS: Alanine Aminotransferase 47 U/L (12-78); Aspartate Amino Transferase 35 U/L (17-59); Bilirubin,Total 1.2 mg/dl (0.2-1.3); Blood Urea Nitrogen 14 mg/dl (9-20); Creatinine Clearance Estimated 193 mL/min (50-200); Estimated Glomerular Filt Rate 98 ml/min (>60); GFR (African American) 118 ML/MIN (>60)
[2023-06-03 21:29] LABS: Albumin Level 4.6 g/dl (3.5-5.0); Albumin/Globulin Ratio 1.4 (1.1-1.8); Alkaline Phosphatase 75 U/L (38-126); Anion Gap 10.8 mEq/L (5-15); Calcium 9.2 mg/dl (8.4-10.2); Carbon Dioxide 29 mmol/L (22.0-30.0); Globulin 3.4 g/dL (1.3-3.2); Glucose 94 mg/dl (74-100); Lipase 120 U/L (23-300)
[2023-06-03 21:31] VITALS: BP 139/73; PULSE 72; RESP 22; O2SAT 99
[2023-06-03 21:44] LABS: D-Dimer 0.31 ug/mL (0.0-0.5)
[2023-06-03 21:57] LABS: Troponin I < 0.01 ng/ml (0.00-0.034)
[2023-06-03 22:08] VITALS: BP 136/72; PULSE 75; RESP 19; TEMP 36.6; O2SAT 98
== END 2023-06-03 22:16 | disposition home or self-care (01) ==
PROVIDERS: Emergency Provider Emergency Medicine
DX: R07.89 Other chest pain (principal); R55 Syncope and collapse
CPT/HCPCS: 71046; 80053; 83690; 84484; 85025; 85378; 93005; 99285

== ENCOUNTER 2023-09-15 00:46 | Emergency (ER) | payer BC, SELFPAY ==
[2023-09-15 00:48] VITALS: BP 145/94; PULSE 81; RESP 17; TEMP 36.7; O2SAT 96; BMI 36.7
--- NOTE | 2023-09-15 00:56 | XR_ITS ---
PROCEDURE INFORMATION: Exam: XR Left Humerus Exam date and time: 09/15/2023 1:05 AM Age: 32 years old Clinical indication: Pain; Upper arm; Left; Additional info: Left arm pain TECHNIQUE: Imaging protocol: Radiologic exam of the left humerus. Views: 2 or more views. COMPARISON: CR XR CHEST PORTABLE 09/15/2023 1:05 AM FINDINGS: Bones/joints: Unremarkable. Soft tissues: Unremarkable. IMPRESSION: No acute findings.
--- NOTE | 2023-09-15 00:56 | XR_ITS ---
PROCEDURE INFORMATION: Exam: XR Chest Exam date and time: 09/15/2023 1:05 AM Age: 32 years old Clinical indication: Pain; Chest pressure; Additional info: Intermittently left arm pressure TECHNIQUE: Imaging protocol: Radiologic exam of the chest. Views: 1 view. COMPARISON: CR XR CHEST PORTABLE 09/15/2023 1:05 AM FINDINGS: Lungs: Unremarkable. No consolidation. Pleural spaces: Unremarkable. No pleural effusion. No pneumothorax. Heart/Mediastinum: Unremarkable. No cardiomegaly. Bones/joints: Acromioclavicular joint degeneration. IMPRESSION: No acute process identified.
--- NOTE | 2023-09-15 00:56 | ED_ITS ---
Discharge Plan Disposition Patient Disposition: Home, Self-Care Prescriptions Prescriptions: No Action hydrocodone-acetaminophen 1 EACH tablet 1 tab PO TID PRN (Reason: Moderate Pain) Qty: 8 0RF ketorolac 10 MG tablet 10 mg PO Q6HP MDD 40mg/day PRN (Reason: Mild Pain) Qty: 16 0RF Rx Instructions: Therapy initiated with IV/IM dose tamsulosin 0.4 MG capsule 0.4 mg PO HS Qty: 15 0RF ondansetron 4 MG tablet,disintegrating 4 mg PO TIDP PRN (Reason: Nausea) Qty: 10 0RF methylprednisolone 4 mg Tablets,Dose Pack 4 mg PO DIRECTED 6 Days Qty: 21 0RF Rx Instructions: Take 1 pack as directed for 6 days Referrals Follow up/Referrals: Octavio Rico MD [Primary Care Provider] - See instructions Activity Restrictions/Add. Instructions Additional Instructions/Restrictions: Please follow-up with your primary care provider. Please return to the emergency department if you develop any new or worsening symptoms or become concerned for your health. Please take Tylenol and ibuprofen as needed for pain. Clinical Impressions Clinical Impression: Arm pain, left Discharge ED Provider: [place] General Adult HPI General Chief complaint: Extremity Injury, Upper Stated complaint: pressure left arm, shoulder, up to neck Time Seen by Provider: 09/15/23 00:50 History of Present Illness HPI narrative: 32-year-old male without significant past medical history presents with intermittent left arm pressure for the last week or so. Reports that currently 4 out of 10. Reports it sometimes radiates to his left chest. He reports it is primarily located in the left upper arm. Comes and goes, nothing exacerbates it or brings it on. Denies any numbness. Reports occasional finger tingling. Reports that he has had a cardiac workup in the recent past that was unremarkable. He denies any chest pain shortness of breath history of DVT etc. He denies laying on it wrong, any musculoskeletal trauma, swelling etc. Related Data Previous Rx's Medication Instructions Recorded hydrocodone 5 mg-acetaminophen 325 1 tab PO TID PRN Moderate Pain #8 12/03/20 mg tablet tabs ketorolac 10 mg tablet 10 mg PO Q6HP PRN Mild Pain #16 12/03/20 tabs ondansetron 4 mg disintegrating 4 mg PO TIDP PRN Nausea #10 tabs 12/03/20 tablet tamsulosin 0.4 mg capsule 0.4 mg PO HS #15 caps 12/03/20 methylprednisolone 4 mg tablets in 4 mg PO DIRECTED 6 days #21 tabs 04/15/23 a dose pack Allergies Allergy/AdvReac Type Severity Reaction Status Date / Time No Known Allergies Allergy Verified 04/15/23 15:18 [facility] Disclaimer: The information contained in this section may have been updated after the patient was seen, as this information can be updated by other users. Social History Smoking Status: Never smoker alcohol intake: never substance use type: denies use current occupational status: employed Travel in the last 8 weeks: None household members: spouse and children housing: house ROS Obtained: Yes All systems reviewed & no additional complaints except as documented Physical Exam General General appearance: alert and in no apparent distress Head Head exam: atraumatic and normocephalic Eye Eye exam: Present normal appearance, PERRL and EOMI ENT ENT exam: Present normal oropharynx and normal external ear exam Neck Neck exam: Present normal inspection and full ROM Chest Chest inspection: Present normal inspection and symmetric chest wall rise; Absent tenderness Respiratory Respiratory exam: Present normal lung sounds bilaterally; Absent respiratory distress Cardiovascular Cardiovascular exam: Present regular rate and normal rhythm Abdominal Exam Abdominal exam: Present soft; Absent distention, tenderness or guarding Extremities Exam Extremities exam: Present normal inspection and other (Bilateral upper extremities are symmetric, strong pulse, no swelling, normal sensation, normal coloration, range of motion without pain.); Absent edema or joint swelling Back Exam Back exam: Present normal inspection; Absent tenderness Neurological Exam Neurological exam: Present alert and oriented X3; Absent motor sensory deficit Psychiatric Psychiatric exam: Present normal affect and normal mood Skin Skin exam: Present warm, dry and normal color Lymphatic Lymphatic Findings: no adenopathy Medical Decision Making Medical Records Medical records reviewed: Yes I reviewed the patient's medical records. Kamran Inquiry Pt receiving controlled substance: No Kamran was queried for this patient: No Vital Signs: 09/15/23 00:48 Temperature 98.1 F Temperature Source Oral Pulse Rate [Left Radial] 81 Respiratory Rate 17 Blood Pressure [Right Arm] 145/94 H Blood Pressure Mean [Right Arm] 111 Blood Pressure Source [Right Arm] Automatic Cuff Blood Pressure Position [Right Arm] Sitting 02 Sat by Pulse Oximetry 96 Oxygen Delivery Method Room Air Lab Data Lab results reviewed: Yes I reviewed the patient's lab results. Lab Results 09/15/23 01:08: WBC 9.4, RBC 5.08, Hgb 15.2, Hct 45.9, MCV 90.5, MCH 29.9, MCHC 33.0, RDW 13.6, Plt Count 275, MPV 8.2, Neut % (Auto) 59.1, Lymph % (Auto) 29.0, [place] % (Auto) 5.3, Eos % (Auto) 5.9, Baso % (Auto) 0.8, Neut # (Auto) 5.6, Lymph # (Auto) 2.7, [place] # (Auto) 0.5, Eos # (Auto) 0.6 H, Baso # (Auto) 0.1, Sodium 140, Potassium 3.8, Chloride 104, Carbon Dioxide 27, Anion Gap 12.8, BUN 12, Creatinine 1.00, Estimated Creat Clear 169, Estimated GFR 87, Est GFR ( Amer) 105, Glucose 99, Calcium 9.5, Total Bilirubin 1.1, AST 27, ALT 42, Alkaline Phosphatase 86, Troponin I < 0.01, Total Protein 8.4 H, Albumin 4.8, G lobulin 3.6 H, Albumin/Globulin Ratio 1.3 09/15/23 01:08 09/15/23 01:08 Orders (Tests/Meds): ED MEDICATIONS Discontinued Medications Generic Name Dose Route Start Last Admin Trade Name Freq PRN Reason Stop Dose Admin Acetaminophen 1,000 mg 09/15/23 00:56 09/15/23 01:04 Acetaminophen 500mg Tab PO 09/15/23 00:57 1,000 mg ONCE ONE Administration Ibuprofen 600 mg 09/15/23 00:56 09/15/23 01:04 Ibuprofen 600 Mg Tablet PO 09/15/23 00:57 600 mg ONCE ONE Administration ORDERS Category Date Time Status CXR --portable [XR chest portable] Stat Exams 09/15/23 00:56 Taken Humerus XR left [XR humerus LT] Stat Exams 09/15/23 00:56 Taken CBC w/Auto Diff [Complete Blood Count Auto Diff] Stat Lab 09/15/23 01:08 Completed CMP [Comprehensive Metabolic Panel] Stat Lab 07/03/24 01:08 Completed Trop I [Troponin I] Stat Lab 09/15/23 01:08 Completed Troponin I Q3H Lab 09/15/23 04:00 Ordered Troponin I Q3H Lab 09/15/23 07:00 Ordered ECG Data Tracing #1: I reviewed this ECG and interpreted as documented below: Sinus rhythm with sinus arrhythmia, rate of 76, no concerning ST or T wave changes ECG initial impression date: 09/15/23 ECG initial impression time: 01:03 Medical Decision Narrative: 32-year-old male without significant past medical history presents with 1 week of intermittent left upper arm pressure that sometimes radiates to his chest.. History was obtained interactive discussion with patient. On arrival, patient is [afebrile, hemodynamically stable, satting appropriately, alert, oriented x4, GCS 15], moving all extremities spontaneously. Full physical exam performed and significant for no significant physical exam abnormalities. Differential includes but is not limited to musculoskeletal pain, DVT, arterial pathology, ACS, PE, arrhythmia, atypical chest pain. Patient was given Tylenol and ibuprofen for symptomatic management and correction of underlying abnormalities. Workup initiated including CBC CMP troponin x 1 chest x-ray radiographs of the left humerus. Aspirin and second troponin were considered but deemed unnecessary given no significant concern for ACS. On re-evaluation, patient [remains afebrile, HD stable.] Laboratory workup independently interpreted by me and significant for negative initial troponin, no significant electrolyte derangement, normal renal function. Imaging independently interpreted by me and significant for chest x-ray that is without evidence of rib fracture or pneumothorax or focal opacity, humerus x-ray is without fracture dislocation or abnormal ossification.. See radiology read for full review of final results. Repeat troponin was considered, but deemed unnecessary due to atypical symptoms, duration of symptoms. Given patient history, exam and workup, patient's presentation most likely represents musculoskeletal arm pain of uncertain underlying etiology. Patient discharged in stable condition with instructions regarding symptomatic care. Procedures Risk/Benefits of Procedure(s) Were Explained: Yes Critical Care Critical Care Time Critical Care Time: No
--- NOTE | 2023-09-15 01:02 | ECG_ITS ---
APPROVED REPORT Exam: Resting ECG HR:76 bpm ECG Measurements Heart Rate 76 AXES OH 132 P 45 QRSd 90 QRS 41 QT 381 T 29 QTc 411 Conclusion SINUS RHYTHM WITH SINUS ARRHYTHMIA NORMAL ECG UNCONFIRMED REPORT Electronically signed by : JUVENTINO REYNA, 09/15/2023 04:35:34
[2023-09-15] MEDS: ACETAMINOPHEN 500MG TAB 1000 MG PO (01:04)
[2023-09-15] MEDS: IBUPROFEN 600 MG TABLET PO (01:04)
[2023-09-15 01:16] LABS: Basophils # 0.1 K/mm3 (0-0.2); Basophils % 0.8 % (0.1-2.0); Eosinophils # 0.6 K/mm3 (0.0-0.4); Eosinophils % 5.9 % (0.1-12.0); Hematocrit 45.9 % (42.0-52.0); Hemoglobin 15.2 g/dL (14.1-18.0); Lymphocytes # 2.7 K/mm3 (0.7-4.5); Mean Corpuscular Hemoglobin 29.9 pg (27.0-31.2); Mean Corpuscular Volume 90.5 fl (80-94); Mean Platelet Volume 8.2 fl (7.4-10.4); Monocytes # 0.5 K/mm3 (0.1-1.0); Monocytes % 5.3 % (1.7-9.3); Neutrophils # 5.6 K/mm3 (1.8-7.8); Neutrophils % 59.1 % (37.0-80.0); Platelet Count 275 K/mm3 (142-424); Red Blood Count 5.08 M/mm3 (4.60-6.20); Red Cell Distribution Width 13.6 % (11.5-17.5); White Blood Count 9.4 K/mm3 (4.8-10.8)
[2023-09-15 01:20] LABS: Chloride 104 mmol/L (98-107); Potassium 3.8 mmoL/L (3.5-5.1); Sodium 140 mmol/L (136-145)
[2023-09-15 01:23] LABS: Alanine Aminotransferase 42 U/L (12-78); Albumin Level 4.8 g/dl (3.5-5.0); Albumin/Globulin Ratio 1.3 (1.1-1.8); Alkaline Phosphatase 86 U/L (38-126); Anion Gap 12.8 mEq/L (5-15); Aspartate Amino Transferase 27 U/L (17-59); Bilirubin,Total 1.1 mg/dl (0.2-1.3); Blood Urea Nitrogen 12 mg/dl (9-20); Carbon Dioxide 27 mmol/L (22.0-30.0); Creatinine Clearance Estimated 169 mL/min (50-200); Estimated Glomerular Filt Rate 87 ml/min (>60); GFR (African American) 105 ML/MIN (>60); Globulin 3.6 g/dL (1.3-3.2); Total Protein,Serum 8.4 g/dl (6.3-8.2)
[2023-09-15 01:24] LABS: Calcium 9.5 mg/dl (8.4-10.2); Glucose 99 mg/dl (74-100)
[2023-09-15 01:36] LABS: Troponin I < 0.01 ng/ml (0.00-0.034)
[2023-09-15 01:51] VITALS: BP 143/79; PULSE 74; RESP 18; TEMP 36.7; O2SAT 99
== END 2023-09-15 01:55 | disposition home or self-care (01) ==
PROVIDERS: Emergency Provider Emergency Medicine; PCP Family Medicine
DX: M79.602 Pain in left arm (principal)
CPT/HCPCS: 71045; 73060; 80053; 84484; 85025; 93005; 99284

== ENCOUNTER → 2023-11-26 12:35 | Outpatient (CLI) | payer BC, SELFPAY | LOC: SL 12:36 | PROVIDERS: PCP Specialist; Visit Provider Specialist | DX: G47.33 Obstructive sleep apnea (adult) (pediatric) (principal) | CPT/HCPCS: G0399 ==

== ENCOUNTER 2024-01-19 12:38 | Outpatient (CLI) | payer BC, SELFPAY ==
--- NOTE | 2024-01-19 12:39 | MR_ITS ---
FINAL REPORT CLINICAL HISTORY: lightheadedness FINDINGS: Multiplanar MR imaging of the brain was performed without and with contrast. There is no evidence of intracranial hemorrhage or mass. No abnormal extra-axial fluid collection is seen. The ventricular size is within normal limits. There is no evidence of shift of the midline structures. The posterior fossa and brainstem have an unremarkable appearance. No area of abnormal restricted diffusion is identified. No abnormal contrast enhancement is seen. Normal major vessel vascular flow voids are noted. There is mucosal thickening of multiple sinuses. IMPRESSION: No acute intracranial abnormality identified. Reviewed, Interpreted and Dictated by Walt Art III, MD Transcribed by Mona Zhou Authenticated and [facility]
[2024-01-19] MEDS: SODIUM CHLORIDE 0.9% 10ML SYR (RAD ONLY) 10 ML IV (13:43)
[2024-01-19] MEDS: GADOTERIDOL INJ 10ML SYRINGE 3 ML IV (13:43)
[2024-01-19] MEDS: GADOTERIDOL INJ 20ML SYRINGE 20 ML IV (13:43)
== END 2024-01-19 23:59 | disposition home or self-care (01) ==
LOC: RAD 12:39
PROVIDERS: PCP Family Medicine; Visit Provider Specialist
DX: R42 Dizziness and giddiness (principal); R26.89 Other abnormalities of gait and mobility; G47.30 Sleep apnea, unspecified
CPT/HCPCS: 70553; A9576

== ENCOUNTER 2024-07-23 20:41 | Emergency (ER) | payer BC, SELFPAY ==
[2024-07-23 20:47] VITALS: BP 137/88; PULSE 69; RESP 18; TEMP 36.8; O2SAT 98; BMI 36.9
--- NOTE | 2024-07-23 21:05 | HMH.EDGENADL ---
Discharge Plan Disposition Patient Disposition: Home, Self-Care Prescriptions Prescriptions: New amoxicillin 875 mg tablet 875 mg PO BID Qty: 20 0RF Referrals Follow up/Referrals: Octavio Rico MD [Primary Care Provider] - See instructions Activity Restrictions/Add. Instructions Additional Instructions/Restrictions: Drops 3 times daily for 7 days and be sure to lay with that ear up and full of drops for 10 to 15 minutes. Oral amoxicillin twice daily for 10 days. Call your family doctor to establish care for this visit to the emergency department and schedule follow-up within 48 hours to ensure improvement. If you have any worsening of your condition or any other concerning signs or symptoms, return to the emergency department or your primary care doctor for further evaluation. Clinical Impressions Clinical Impression: Otitis externa, Otitis media Print Language Print Language: Nicaraguan Discharge ED Provider: Kaveh Keating General Adult HPI General Chief complaint: Ear Stated complaint: Right earache Time Seen by Provider: 07/23/24 20:54 Mode of Arrival: Ambulatory Source of Information: Patient Description of Symptoms (Recalled from ER Triage Doc. by RN): c/o being sick for the past week with cough, congestion. Today started having right ear pain. History of Present Illness HPI narrative: Please note that above description of symptoms, in this electronic medical record under categorization of recalled from ER triage doctor by RN are reflective of an initial nursing assessment, however, is not reflective of my full history and physical exam that was personally taken and clarified. Consequentially, this preceding description of symptoms, which may include the patient's categorized chief complaint in the EMR, do not reflect my personal clinical impression, and the ultimate description of history of present illness and patient stated complaints should be deferred to this section of the note. Unless stated otherwise or congruent with this section of the note, additional signs, symptoms, or incongruence should be interpreted as inaccurate with my clinical impression. Related Data Previous Rx's ?Medication ?Instructions ?Recorded amoxicillin 875 mg tablet 875 mg PO BID #20 tabs 07/23/24 Allergies Allergy/AdvReac Type Severity Reaction Status Date / Time No Known Allergies Allergy Verified 01/20/24 16:42 [facility] Disclaimer: The information contained in this section may have been updated after the patient was seen, as this information can be updated by other users. Medical History (Updated 07/23/24 @ 21:16 by Kaveh Keating MD) Vertigo Ureteral stone Surgical History (Updated 01/20/24 @ 16:46 by Edel Pickard) No history of previous surgery Family History (Updated 10/19/23 @ 09:40 by Edel Pickard) Other Diabetes Hypertension Tuberculosis Social History (Updated 10/19/23 @ 09:41 by Edel Pickard) Smoking Status: Never smoker years smoked: 3 alcohol intake: never substance use type: denies use current occupational status: employed Travel in the last 8 weeks?: None household members: spouse and children housing: apartment marital status: number of children: 2 Have you lived/traveled outside [place] in past 30 days?: No Contact w/someone who lives/traveled outside US past 30 days?: No Exposure to someone with infectious disease in past 14 days?: No Do you have a fever (greater than 100.4 F or 38 C)?: No Have you tested positive for COVID-19?: No Exposed to someone with COVID-19 in past 14 days?: No Do you have a sore throat?: No Do you have a cough?: No Do you have any weakness?: No Do you have any diarrhea?: No Are you experiencing any unusual bleeding?: No Do you have any muscle aches/pain?: No Do you have any abdominal pain?: No Are you experiencing loss of taste or smell?: No Other Medical History Have you received the Flu Vaccine for this season: No Have you received the Pneumonia Vaccine: No ROS Obtained: Yes All systems reviewed & no additional complaints except as documented Physical Exam General General appearance: alert Head Head exam: atraumatic and normocephalic Eye Eye exam: Present normal appearance, PERRL and EOMI ENT ENT exam: Absent TM's normal bilaterally (Patient has right-sided otitis media and otitis externa. Serous effusion on the left) or normal external ear exam Neck Neck exam: Present normal inspection, full ROM and trachea midline Respiratory Respiratory exam: Absent respiratory distress, wheezes, stridor, accessory muscle use or prolonged expiratory phase Cardiovascular Cardiovascular exam: Present other (Pulses equal symmetric in upper and lower extremities) Abdominal Exam Abdominal exam: Present soft; Absent distention, tenderness or pulsatile mass Extremities Exam Extremities exam: Absent edema Neurological Exam Neurological exam: Present alert, oriented X3 and CN II-XII intact; Absent motor sensory deficit Skin Skin exam: Present warm and dry; Absent diaphoresis or erythema Medical Decision Making Medical Records Medical records reviewed: Yes I reviewed the patient's medical records. Screening: Per USPSTF and CDC recommendations, given the prevalence of disease in our region, it is our hospital?s policy to screen for HIV and viral Hepatitis for all patients aged 18 and over and those with ongoing risk factors. Kamran Inquiry Pt receiving controlled substance: No Kamran was queried for this patient: No Vital Signs: 07/23/24 20:47 Temperature 98.2 F Temperature Source Oral Pulse Rate [Right] 69 Respiratory Rate 18 Blood Pressure [Left Arm] 137/88 Blood Pressure Mean [Left Arm] 104 Blood Pressure Source [Left Arm] Automatic Cuff Blood Pressure Position [Left Arm] Sitting 02 Sat by Pulse Oximetry 98 Oxygen Delivery Method Room Air Orders (Tests/Meds): ED MEDICATIONS Generic Name Dose Route Start Last Admin Trade Name Freq PRN Reason Stop Dose Admin Amoxicillin 1,000 mg 07/23/24 20:59 Amoxicillin 500mg Capsule PO 07/23/24 21:00 ONCE ONE Ciprofloxacin/Dexamethasone 2 ml 07/23/24 20:59 Cipro 0.3%-Dex 0.1% Otic Susp 7.5ml OT 07/23/24 21:00 ONCE ONE Dexamethasone 10 mg 07/23/24 21:00 Dexamethasone 4mg Tablet PO 07/23/24 21:01 ONCE ONE Medical Decision Narrative: 33-year-old male presenting with right ear pain. He states that he has been sick on and off for the last week with upper respiratory symptoms, congestion, etc. States that a couple hours prior to this he started severe pressure and pain in his right ear that radiates down the side of his neck and feels like it goes into his throat. No difficulty or pain with swallowing, fevers or chills, range of motion of neck difficulties, meningismus, confusion, vision changes, etc. Came in for further evaluation. History was obtained via conversation with patient. On arrival, patient hemodynamically stable, alert, oriented x4, appropriate, GCS 15, moving all extremities spontaneously, pupils equal and reactive to light. Full physical exam performed and significant for very clinically well, but he does have otitis media and otitis externa on the right with serous effusion on the left. Patient given Ciprodex drops and oral amoxicillin, as well as steroid for inflammatory pain. Amoxicillin sent to pharmacy of choice, [facility]. Because patient at baseline without signs or symptoms of clinical decompensation, deemed appropriate for discharge. Results were relayed to patient who voiced understanding and were agreeable to outpatient management and follow up. I discussed my clinical impression with patient and answered all questions. At this time, the evidence for any other entities in the differential is insufficient to warrant any further testing or ED observation. This was explained as well. Advisory was given that persistent or worsening symptoms require further evaluation. I confirmed the understanding of this discussion. Wheel Assembler disclaimer Much of this encounter note is an electronic microfilm equipment inspector spoken language to printed text. Electronic microfilm equipment inspector of the spoken language may permit errors. Although I have reviewed the note, some errors may still exist. Critical Care Critical Care Time Critical Care Time: No
--- NOTE | 2024-07-23 21:07 | PC.NURSE ---
supervisor cook house contacted regarding the need for cipro drops.
[2024-07-23] MEDS: DEXAMETHASONE 4MG TABLET 10 MG PO (21:09)
[2024-07-23] MEDS: AMOXICILLIN 500MG CAPSULE 1000 MG PO (21:09)
[2024-07-23] MEDS: CIPRO 0.3%-DEX 0.1% OTIC SUSP 7.5ML 2 ML OT (21:22)
[2024-07-23 21:26] VITALS: BP 164/97; PULSE 88; RESP 14; TEMP 37.2; O2SAT 97
== END 2024-07-23 21:27 | disposition home or self-care (01) ==
PROVIDERS: Emergency Provider Emergency Medicine; PCP Family Medicine
DX: H66.91 Otitis media, unspecified, right ear (principal); H60.91 Unspecified otitis externa, right ear
CPT/HCPCS: 99283; J8540

== ENCOUNTER 2024-08-11 18:40 | Emergency (ER) | payer BC, SELFPAY ==
--- NOTE | 2024-08-11 18:56 | ED_ITS ---
<Statement entered by Kayy Harrell DO - 08/11/24 22:16> I was consulted by the THOMAS, and we discussed the complexity of the problems being addressed. I approved the treatment and management plan for this patient's care in the emergency department, thus performing a substantive portion of the medical decision making. Kayy Harrell DO Discharge Plan Disposition Patient Disposition: Home, Self-Care Prescriptions Prescriptions: No Action amoxicillin 875 mg tablet 875 mg PO BID Qty: 20 0RF Referrals Follow up/Referrals: Octavio Rico MD [Primary Care Provider, Medical] - See instructions Activity Restrictions/Add. Instructions Additional Instructions/Restrictions: You are seen emergency room tonight with complaints of right-sided low back pain. You have just had a lumbar strain from your new job. Can alternate treatment with heat, and/or ice, and/or Motrin and Tylenol. Clinical Impressions Clinical Impression: Strain of lumbar region Instructions Patient Instructions: DI for Low Back Pain Print Language Print Language: Portuguese Discharge ED Provider: Kayy Harrell General Adult HPI General Chief complaint: Back Pain/Injury Stated complaint: Pain on rt lower side of back Time Seen by Provider: 08/11/24 18:52 History of Present Illness HPI narrative: Deshawn Walters is a 33-year-old male who presents emergency room tonight with complaints of some mild right sided flank and low back pain. Mr. Chen states that he has a history of 1 kidney stone about 2 years ago. Was able to pass the stone on his own. States that he began having low back pain that started last week but quickly resolved. States the pain came back about 2 days ago and again subsided. 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 States that he began having pain again this afternoon and decided to be evaluated. Pain does not radiate around to his abdomen or down into his groin area. No CVA tenderness. No weakness in his leg, no numbness, tingling in either legs. No saddle paresthesias noted. Denies any hematuria or dysuria. No fever noted. Does not take any blood thinners. No other complaints at this time. Related Data Previous Rx's ?Medication ?Instructions ?Recorded amoxicillin 875 mg tablet 875 mg PO BID #20 tabs 07/23 Allergies Allergy/AdvReac Type Severity Reaction Status Date / Time No Known Allergies Allergy Verified 01/20/24 16:42 [facility] Disclaimer: The information contained in this section may have been updated after the patient was seen, as this information can be updated by other users. Medical History (Updated 08/11/24 @ 20:03 by Funmi Espinosa APRN) Vertigo Ureteral stone Surgical History (Updated 01/20/24 @ 16:46 by Edel Pickard) No history of previous surgery Family History (Updated 10/19/23 @ 09:40 by Edel Pickard) Other Diabetes Hypertension Tuberculosis Social History (Updated 10/19/23 @ 09:41 by Edel Pickard) Smoking Status: Never smoker years smoked: 3 alcohol intake: never substance use type: denies use current occupational status: employed Travel in the last 8 weeks?: None household members: spouse and children housing: apartment marital status: number of children: 2 Have you lived/traveled outside [place] in past 30 days?: No Contact w/someone who lives/traveled outside US past 30 days?: No Exposure to someone with infectious disease in past 14 days?: No Do you have a fever (greater than 100.4 F or 38 C)?: No Have you tested positive for COVID-19?: No Exposed to someone with COVID-19 in past 14 days?: No Do you have a sore throat?: No Do you have a cough?: No Do you have any weakness?: No Do you have any diarrhea?: No Are you experiencing any unusual bleeding?: No Do you have any muscle aches/pain?: Yes Do you have any abdominal pain?: No Are you experiencing loss of taste or smell?: No Other Medical History Have you received the Flu Vaccine for this season: No Have you received the Pneumonia Vaccine: No ROS Obtained: Yes Systems reviewed as appropriate & no additional complaints except as documented Physical Exam General General appearance: alert and in no apparent distress Head Head exam: atraumatic and normocephalic Eye Eye exam: Present PERRL and EOMI Chest Chest inspection: Present symmetric chest wall rise Respiratory Respiratory exam: Present normal lung sounds bilaterally Cardiovascular Cardiovascular exam: Present regular rate and normal rhythm Abdominal Exam Abdominal exam: Present soft and normal bowel sounds; Absent tenderness Extremities Exam Extremities exam: Present full ROM Back Exam Comment: No CVA tenderness, no tender to palpation where he reports his pain. Neurological Exam Neurological exam: Present alert and oriented X3 Skin Skin exam: Present warm, dry and intact Medical Decision Making Medical Records Screening: Per USPSTF and CDC recommendations, given the prevalence of disease in our region, it is our hospital?s policy to screen for HIV and viral Hepatitis for all patients aged 18 and over and those with ongoing risk factors. Kamran Inquiry Pt receiving controlled substance: No Vital Signs: 08/11/24 18:59 08/11/24 19:04 Temperature 98.2 F 98.2 F Temperature Source Oral Oral Pulse Rate 83 Pulse Rate [Right] 83 Respiratory Rate 18 18 Blood Pressure 150/72 H Blood Pressure [Right Arm] 150/72 H Blood Pressure Mean [Right Arm] 98 Blood Pressure Source Automatic Cuff Blood Pressure Source [Right Arm] Automatic Cuff Blood Pressure Position Supine Blood Pressure Position [Right Arm] Supine 02 Sat by Pulse Oximetry 96 96 Oxygen Delivery Method Room Air Room Air Lab Data Lab Results 08/11/24 18:52: Urine Color Yellow, Urine Appearance Clear, Urine pH 6.0, Ur Specific [place] 1.020, Urine Protein Negative, Urine Glucose (UA) Negative, Urine Ketones Negative, Urine Blood Negative, Urine Nitrate Negative, Urine Bilirubin Negative, Urine Urobilinogen 0.2, Ur Leukocyte Esterase Negative Orders (Tests/Meds): ORDERS Category Date Time Status UA [Urinalysis and Microscopic] Stat Lab 08/11/24 18:52 Results Medical Decision Narrative: In summary patient is an 33-year-old male who presents emergency department for evaluation of right-sided low back pain. Patient reports the back pain started approximately 1 week ago but subsided. Started again about 2 days ago but again subsided. Began having pain this morning while at work. Pain is nonradiating. No CVA tenderness. Denies any dysuria or hematuria. Has had a kidney stone in the past but is unsure if he feels like this is a similar type episode or not.. Patient is hemodynamically stable upon arrival, afebrile. Nonfocal unremarkable physical exam. Differential diagnosis includes muscle strain, kidney stone. Initial workup will be conducted with urinalysis. Initial workup reviewed by me urinalysis unremarkable for any blood or infection. Without the presence of blood or acute cystitis, kidney stone is unlikely. I did consider ordering a CT of the abdomen pelvis without contrast to check for kidney stone. However, patient remained completely pain-free and asymptomatic while he was here in the ER. States that the pain is completely gone at this time without any intervention. Patient agrees that this is likely more of a muscle type strain from his new job. Given this patient is appropriate for discharge at this time. He will not be prescribed any medications at discharge. Patient was instructed to alternate with heat or ice, whichever he prefers. It can also medicate alternating with Motrin and Tylenol for pain control. He can return to the emergency room if his pain should return and/or worsens. Critical Care Critical Care Time Critical Care Time: No
[2024-08-11 18:59] VITALS: BP 150/72; PULSE 83; RESP 18; TEMP 36.8; O2SAT 96; BMI 35.7
[2024-08-11 19:04] VITALS: BP 150/72; PULSE 83; RESP 18; TEMP 36.8; O2SAT 96
[2024-08-11 19:32] LABS: Microscopic, Urine URINE MICROSCOPIC (MICROSCOPIC)
[2024-08-11 19:51] LABS: Appearance,Urine CLEAR (Clear); Bilirubin,Urine Negative (Negative); Blood, Urine Negative (Negative); Color,Urine YELLOW (Yellow); Glucose,Urine (UA) Negative (Negative); Ketones,Urine Negative (Negative); Leukocyte Esterase,Urine Negative (Negative); Nitrate,Urine Negative (Negative); Protein,Urine Negative (Negative); Urobilinogen,Urine 0.2 EU/dl (0.2)
[2024-08-11 20:07] VITALS: BP 148/73; PULSE 83; RESP 16; TEMP 36.6; O2SAT 96
[2024-08-11 20:16] LABS: Bacteria,Urine Trace /lpf; WBC,Urine Occasional #/hpf (0-3)
== END 2024-08-11 20:10 | disposition home or self-care (01) ==
PROVIDERS: Emergency Provider Emergency Medicine; PCP Family Medicine
DX: S39.012A Strain of muscle, fascia and tendon of lower back, initial encounter (principal); X50.0XXA Overexertion from strenuous movement or load, initial encounter
CPT/HCPCS: 81001; 99283